=== PATIENT | male | born 1970 | race Caucasian/White ===

== ENCOUNTER 2020-12-04 10:13 | Emergency (ER) | payer OTHER ==
[~2020-12-04] VITALS: Ht 185.4 cm; Wt 100.8 kg
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
[2020-12-04] MEDS ORDERED: CETI10CA PO (10:55)
[2020-12-04 11:28] VITALS: BP 153/72
--- NOTE | 2020-12-04 11:28 | NUR ---
PT RESTING COMFORTABLY ON GURNEY. UPDATED ON POC.
[2020-12-04] MEDS ORDERED: BUPIVACAINE/PF 0.5% ONE (12:20)
[2020-12-04] MEDS ORDERED: IBUPROFEN 600 MG TABLET ONE (12:23)
[2020-12-04] MEDS ORDERED: ACETAMINOPHEN 500 MG TABLET ONE (12:24)
--- NOTE | 2020-12-04 12:27 | NUR ---
PT MEDICATED PER EMAR.
[2020-12-04] MEDS ORDERED: BUPIVACAINE/PF-EPI 0.25% 1:200K SQ ONE (12:30)
[2020-12-04] MEDS ORDERED: ACETAMINOPHEN 500 MG TABLET PO ONE (12:30)
[2020-12-04] MEDS ORDERED: IBUPROFEN 600 MG TABLET PO ONE (12:30)
--- NOTE | 2020-12-04 12:36 | NUR ---
PT DC HOME IN A STABLE CONDITION. DC INSTRUCTIONS DISCUSSED WITH PT. PT VERBALIZED UNDERSTANDING. NO FURTHER QUESTIONS OR CONCERNS EXPRESSED. PT AMBULATED TO DC DESK WITH RN WITH A STEADY GAIT.
== END 2020-12-04 12:38 | disposition home or self-care (01) ==
LOC: ED 12:30
DX: S00.81XA Abrasion of other part of head, initial encounter (principal); M79.5 Residual foreign body in soft tissue; X58.XXXA Exposure to other specified factors, initial encounter; Y93.89 Activity, other specified; Y92.69 Other specified industrial and construction area as the place of occurrence of the external cause; Y99.8 Other external cause status
CPT/HCPCS: 70250; 99283